=== PATIENT | female | born 1980 | race Asian ===

== ENCOUNTER 2023-09-20 09:39 | Emergency (ER) | payer OTHER, SELFPAY ==
[2023-09-20 09:42] VITALS: BP 145/77
--- NOTE | 2023-09-20 10:11 | ED.GENMED ---
History of Present Illness
General
Chief Complaint: Back Pain
Source: patient
Time Seen by Provider: 09/20/23 09:57
History of Present Illness
History of Present Illness:
42yoF with no significant past medical history presenting with her for evaluation of back pain. Patient developed low back pain yesterday afternoon around 4 PM. She first noticed the pain when she was getting out of the car. Patient
denies any injuries or heavy lifting. The pain worsened this morning and is now severe. Patient reports feeling lightheaded this morning due to the pain. The pain is worse with position changes. Pain improves if she lays flat and if she
ambulates. She tried ibuprofen and heating pad last night for her symptoms. She has not taken anything this morning. She currently rates her pain as a 6/10 in severity at rest and a 10/10 with movement. Patient is otherwise asymptomatic and denies
any fevers, chills, weight loss, saddle anesthesia, incontinence, abdominal pain, syncope. No paresthesias, weakness, or pain in the lower extremities. No history of cancer or IV drug use. No prior back surgeries.
Phy Exam
General Physical Exam
General Presentation: well appearing and no apparent distress
General age: appears stated age
General Skin: warm and dry
General Habitus: normal
General Mental: alert
Gastrointestinal Exam
Gastrointestinal Exam: non tender, soft and non distended
Neurological Exam
Neurological Exam: no motor deficits, no sensory deficits and other (5/5 strength and sensation intact in bilateral lower extremities. 2+ patellar reflexes bilaterally. )
Reflexes
Reflexes: +2: Left patellar and +2: Right patellar
Musculoskeletal Exam
Musculoskeletal Exam: other (No reproducible tenderness in the lumbar spine. No skin changes. Negative straight leg raise bilaterally. 2+ DP pulses bilaterally. )
Skin Exam
Skin Exam: normal color and warm/dry
Course
Orders/Labs/Results
Orders:
Orders
09/20/23 10:12
Acetaminophen [Tylenol] 1,000 mg PO NOW STA
Ketorolac [Toradol] 30 mg IM NOW STA
Test Result ONCE
Lumbar Spine Complete, 4 View [CR Lumbar Spine Comp Min 4 Vw*] Urgent
Comment:
Reason For Exam: Low back pain
09/20/23 10:15
Lidocaine [Lidocaine 4% Patch] 1 patch TOPICAL DAILY
Apply Lidocaine patch(s) to:: low back
09/20/23 10:25
HCG, Urine Qualitative Screen Urgent
Date Specimen was Collected: 09/20/23
Time Specimen was Collected: 10:20
Vital Signs
Initial and Last Documented VS:
Initial Vital Signs
Temp Pulse Resp BP Pulse Ox
98.6 F 78 16 145/77 98
09/20/23 09:42 09/20/23 09:42 09/20/23 09:42 09/20/23 09:42 09/20/23 09:42
Last Documented Vital Signs
Temp Pulse Resp BP Pulse Ox
98.6 F 72 14 107/82 100
09/20/23 09:42 09/20/23 12:01 09/20/23 12:01 09/20/23 12:01 09/20/23 12:01
MDM/Problems Addressed
Differential Diagnosis Includes:
42yoF presenting for atraumatic low back pain x 1 day. Worse with position changes. No red flags in history including no saddle anesthesia, incontinence, fevers, hx of IVDU. She is afebrile and hemodynamically stable. She is well appearing in no
distress. No reproducible tenderness on exam. Lower extremities are neurovascularly intact. Differential diagnosis includes but is not limited to: lumbar sprain, DDD, less likely kidney stone
Initial ED plan: Check lumbar x-rays given report of midline pain. IM Toradol, Tylenol, and lidocaine patches for pain.
*Critical Care Note
Total Time (30-74mins, 75-104mins- exclusive of procedures): Not Applicable
Update Note
Update Note:
X-rays are negative for fracture per my interpretation. She is feeling significantly improved after medications and she is now ambulating without issue. She is stable for discharge. Supportive care discussed including heat, topical lidocaine,
Tylenol, ibuprofen. Advised f/u with PCP, orthopedics, and pain management. ED return precautions discussed. She was discharged in stable condition.
ED Attending Note
-
Portions of this chart may have been created with voice recognition software.� Occasional wrong word or��sound alike� substitutions may have occurred due to the inherent limitations of voice recognition software.
Discharge Plan
Departure
Patient Disposition: Home (Routine Discharge)
Date of Disposition: 09/20/23
Time of Disposition: 11:38
Patient with high blood pressure during this ER visit?: Yes
Discharge Problem:
Acute low back pain
Instructions: Low Back Pain (DC)
Prescriptions:
No Action
Erythromycin 2% Gel 2 %
1 tube topical DAILY
PNV,calcium 60-drcr-szrid acid [ Vitamin Plus Low Iron] 1 TABLET tablet
1 tab PO DAILY
oxycodone-acetaminophen 5 MG/325 MG tablet
1 - 2 tab PO Q3HPRN PRN (Reason: severe pain) Qty: 30 0RF
ibuprofen 600 MG tablet
600 mg PO Q4HPRN PRN (Reason: moderate pain/cramps) Qty: 0 0RF
Referrals:
Matt Morejon MD [Active] -
Kathy Cristina DO [Active] -
Ga Grove MD [Family Provider] -
Activity Restrictions/Additional Instructions:
Apply heat to affected area. Take Tylenol 650mg and ibuprofen 600mg every 6 hours as needed for pain. Use lidocaine patches daily (12 hours on, 12 hours off).
Please follow-up with your family doctor, orthopedics, and/or pain management. Return to the ER with any new or worsening symptoms.
Interventions
Interventions:
*Risk Screen - Suicide Last Done: 09/20/23 11:15
*General Assessment Last Done: 09/20/23 11:15
*Neglect/Abuse Screening Last Done: 09/20/23 11:15
ED- Fall Risk Assessment Last Done: 09/20/23 12:04
*ED COVID-19 Vaccine History Last Done: 09/20/23 12:04
*Nursing Disposition Last Done: 09/20/23 12:04
ED-Musculoskeletal Assessment Last Done: 09/20/23 11:15
Discharge Date and Time
Discharge Date/Time: 09/20/23 12:04
Print Language: CITIZEN [place]
[2023-09-20] MEDS: TORADOL 30 MG IM (10:23)
[2023-09-20] MEDS: TYLENOL 1000 MG PO (10:23)
[2023-09-20] MEDS: LIDOCAINE 4% PATCH 1 PATCH TOPICAL (10:23)
[2023-09-20 10:33] LABS: HCG, Urine Qualitative Screen Negative
[2023-09-20 12:01] VITALS: BP 107/82
== END 2023-09-20 12:04 | disposition home or self-care (01) ==
LOC: EMR 09:39
PROVIDERS: Physician Assistant; EMERGENCY PHYSICIAN Emergency Medicine; FAMILY PHYSICIAN Family Medicine
DX: M54.50 Low back pain, unspecified (principal); R42 Dizziness and giddiness
CPT/HCPCS: 99283; 96372; 72110; 81025